=== PATIENT | female | born 1940 | race Caucasian/White ===

== ENCOUNTER → 2016-10-11 | Outpatient (CLI) | payer OTHER ==
--- NOTE | 2016-10-11 09:04 | DX ---
Left Hip, Two Views History: Pain post trauma. Persistent left hip pain following a fall ten days ago in a 76-year-old fe male; comparison prior study January 16, 2015. Findings: There is stable positioning of the total left hip arthroplasty. There is no evidence for lo osening or acute osseous abnormality. Additionally, the total right hip replacement is also unchanged . Vascular calcifications are noted. Degenerative changes are noted in the lower lumbar spine. Impression: Negative for fracture or other acute osseous abnormality associated with prior total left hip arthroplasty.
== END ==
LOC: CLAB 08:33
PROVIDERS: ATTEND Family Medicine
DX: M25.552 Pain in left hip (principal); Z96.642 Presence of left artificial hip joint
CPT/HCPCS: 73502-PO

== ENCOUNTER → 2017-02-27 | Outpatient (CLI) | payer OTHER | LOC: CIMAGING 14:57 | PROVIDERS: ATTEND Family Medicine | DX: N85.9 Noninflammatory disorder of uterus, unspecified (principal); R93.8 Abnormal findings on diagnostic imaging of other specified body structures; N83.201 Unspecified ovarian cyst, right side | CPT/HCPCS: 76856-PO ==

== ENCOUNTER 2017-05-11 15:03 | Emergency (ER) | payer OTHER ==
[2017-05-11 15:14] VITALS: BP 145/83; PULSE 95; RESP 18; TEMP 100; O2SAT 96
[2017-05-11 15:23] LABS: COLOR YELLOW; LEUKOCYTE ESTERASE,URINE 2+ (NEGATIVE); NITRITE,URINE NEGATIVE (NEGATIVE); PH,URINE 6.5 (5.0-7.5)
[2017-05-11] MEDS ORDERED: ACETAMINOPHEN 500 MG TAB PO ONE (15:32)
[2017-05-11 15:35] LABS: BACTERIA 2+ /hpf (NONE SEEN); MUCUS 1+ /lpf (NONE-1+); WBC,URINE 15-25 /hpf (0-3)
--- NOTE | 2017-05-11 15:35 | EDPHY ---
H & P Stated Complaint: fever, weakness Time Seen by Provider: 05/11/17 15:19 HPI/ROS: This patient complains of a fever. She states that this morning she developed chills and fever to 102.6 at home. She has associated feeling of generalized weakness and denies any other symptoms. A friend of hers drove her in by private vehicle for further evaluation. She has partial relief for fever from [id number] antipyretics and no other exacerbating factors are noted. ROS: Constitutional: Fevers as above. Generalized weakness. Otherwise negative. HEENT: No URI symptoms. No sore throat. No ear pain. Neuro: No headache. No focal neuro symptoms. Pulmonary: No cough. No shortness of breath. Cardiovascular: No chest pain. She does report that her pulses that faster after walking this morning than usual. She states the usually her pulse days in the 60s from walking and this morning got up to around 100 to 110. After resting it resolved back to normal pulse for her. GI: No abdominal pain. She is chronically loose stools 1 a day that have not changed recently. The color is brown. : No significant urinary symptoms. She has noticed any hematuria. She states she has a yeast infection that was diagnosed by her physician and she is using vaginal suppositories some kind. She denies any vaginal discharge at this time. Integumentary: No skin rash Musculoskeletal: She reports chronic lumbar back pain that is unchanged recently. She attributes this degenerative disc disease Complete review of symptoms is otherwise negative. Source: Patient Exam Limitations: No limitations - Personal History Current Tetanus/Diphtheria Vaccine: Yes Current Tetanus Diphtheria and Acellular Pertussis (TDAP): Yes Tetanus Vaccine Date: unsure - Medical/Surgical History Hx Asthma: No Hx Chronic Respiratory Disease: No Hx Diabetes: No Hx Cardiac Disease: Yes Hx Renal Disease: No Hx Cirrhosis: No Hx Alcoholism: No Hx HIV/AIDS: No Hx Splenectomy or Spleen Trauma: No Other PMH: Gall bladder removed, heart stent, High blood pressure, tonsils,tubal , liver stone, osteoperosis - Family History Significant Family History: No pertinent family hx - Social History Smoking Status: Former smoker Alcohol Use: None Drug Use: None - Physical Exam Exam: General Appearance: Alert, no distress. Eyes: Pupils equal and round no pallor or injection. ENT, Mouth: Mucous membranes moist. Respiratory: There are no retractions, lungs are clear to auscultation. Cardiovascular: Regular rate and rhythm. Gastrointestinal: Normoactive, soft, nontender. No organomegaly. Back: No CVA tenderness Neurological: GCS 15 Skin: Slight diaphoresis. Musculoskeletal: Neck is supple nontender. Extremities are symmetrical, full range of motion. Psychiatric: Mood and affect are normal DIFFERENTIAL DIAGNOSIS: After history and physical exam differential diagnosis was considered for urinary tract infection, viral illness, other infectious etiology Constitutional: Initial Vital Signs Temperature (C) 37.8 C 05/11/17 15:09 Heart Rate 95 05/11/17 15:09 Respiratory Rate 18 05/11/17 15:09 Blood Pressure 145/83 H 05/11/17 15:09 O2 Sat (%) 96 05/11/17 15:09 O2 Delivery Mode Room Air Allergies/Adverse Reactions: morphine Allergy (Verified 03/01/15 09:46) Vomiting Home Medications: Medication Instructions Recorded Atenolol [Atenolol 25 mg] 25 mg PO DAILY 08/31/11 FLUoxetine [Prozac] 20 mg PO DAILY 08/31/11 Hydrochlorothiazide 11/01/13 Levothyroxine 01/16/15 Cephalexin [Keflex (*)] 500 mg PO QID #28 cap 05/11/17 Medical Decision Making ED Course/Re-evaluation: The patient provided a urine on arrival and prior to further workup the urinalysis is back looking positive for UTI. Given the patient is hemodynamically stable and tolerating good p.o. intake and that she is safe to treat with oral antibiotics. The patient prefers this treatment plan, declining IV, lab work another workup. She reports that she has had UTI in the past with similar fevers. She has no CVA tenderness, is tolerating good p.o. intake has normal vital signs here. Her symptoms just started this morning. Not think she has a significant pyelonephritis that she may have early pyelonephritis given associated fevers that she reports. Minimal fever here currently. Will treat with oral antibiotics she understands the need to return if she develops any significant worsening of her symptoms despite the treatment plan. - Data Points Laboratory Results: 05/11/17 15:15 Urine Color YELLOW Urine Appearance CLOUDY Urine pH 6.5 (5.0-7.5) Ur Specific Reg[place] 1.020 (1.002-1.030) Urine Protein NEGATIVE (NEGATIVE) Urine Ketones NEGATIVE (NEGATIVE) Urine Blood TRACE H (NEGATIVE) Urine Nitrate NEGATIVE (NEGATIVE) Urine Bilirubin NEGATIVE (NEGATIVE) Urine Urobilinogen 0.2 EU EU (0.2-1.0) Ur Leukocyte Esterase 2+ H (NEGATIVE) Urine RBC 1-3 /hpf /hpf (0-3) Urine WBC 15-25 /hpf H /hpf (0-3) Ur Epithelial Cells 2+ /lpf H /lpf (NONE-1+) Urine Bacteria 2+ /hpf H /hpf (NONE SEEN) Urine Mucus 1+ /lpf /lpf (NONE-1+) Urine Glucose NEGATIVE (NEGATIVE) Medications Given: Discontinued Medications Acetaminophen (Tylenol) 1,000 mg PO EDNOW ONE Stop: 05/11/17 15:33 Last Admin: 05/11/17 15:40 Dose: 1,000 mg Cephalexin HCl (Keflex) 500 mg PO EDNOW ONE PRN Reason: Protocol Stop: 05/11/17 15:47 Last Admin: 05/11/17 15:55 Dose: 500 mg Departure - Departure Disposition: Home, Routine, Self-Care Clinical Impression: Urinary tract infection Qualifiers: Urinary tract infection type: site unspecified Hematuria presence: without hematuria Qualified Code(s): N39.0 - Urinary tract infection, site not specified Fever Qualifiers: Fever type: unspecified Qualified Code(s): R50.9 - Fever, unspecified Condition: Good Instructions: Urinary Tract Infection in Women (ED) Additional Instructions: Diagnosis: 1. UTI 2. Fever Plan: Drink plenty fluids Keflex antibiotic A ibuprofen Tylenol for fevers if needed Return for any significant worsening of your symptoms despite the treatment plan Referrals: Brooklyn Herrera [Primary Care Provider] - As per Instructions Prescriptions: Cephalexin [Keflex (*)] 500 mg PO QID #28 cap
[2017-05-11] MEDS ORDERED: CEPHALEXIN 500 MG CAP PO ONE (15:46)
== END 2017-05-11 16:06 | disposition home or self-care (01) ==
LOC: CED 15:03
DX: N39.0 Urinary tract infection, site not specified (principal); B96.89 Other specified bacterial agents as the cause of diseases classified elsewhere; Z87.891 Personal history of nicotine dependence
CPT/HCPCS: 81003-PO; 81015-PO

== ENCOUNTER → 2018-04-05 | Outpatient (CLI) | payer OTHER | LOC: BHFA 08:30 | PROVIDERS: ATTEND Internal Medicine | DX: I67.9 Cerebrovascular disease, unspecified (principal); I65.21 Occlusion and stenosis of right carotid artery ==